=== PATIENT | female | born 1995 | race African-American/Black ===

== ENCOUNTER 2016-06-11 16:10 | Inpatient (IN) ==
[2016-06-11] MEDS ORDERED: ONDANSETRON 4 MG/2 ML VIAL IV STA (16:39)
[2016-06-11] MEDS ORDERED: METOCLOPRAMIDE 10 MG/2 ML VIAL IV STA (16:39)
[2016-06-11] MEDS ORDERED: LEVOFLOXACIN INJ 750 MG in PREMIX 1 EACH IV STA (16:39)
[2016-06-11] MEDS ORDERED: SODIUM CHLORIDE 0.9% 2,000 ML IV STA (16:39)
[2016-06-11] MEDS ORDERED: PANTOPRAZOLE 40 MG VIAL IV STA (16:39)
--- NOTE | 2016-06-11 16:45 | Emergency Department Note ---
Arrival - Arrival Chief Complaint: Abdominal / Flank Pain Stated Complaint: POSSIBLY IN DKA ED Nursing Triage Note: lower abdomen pain since last . has not been able to eat or drink without vomiting. reports thinks she is in diabetic ketoacidosis. reports sweet tast in her mouth and sob. last sugar she checked at [facility] was over 450. glucose in triage is over 454 Mode of Arrival: Ambulatory Limitations: No Limitations Source: Patient Time Seen by Provider: 06/11/16 16:39 - History of Present Illness HPI Narrative: This 20-year-old black female presents with a five-day history of progressive abdominal pain, nausea, dry heaves, and ever increasing blood sugar. The patient has long-standing type 1 diabetes and is frequently hospitalized for her sugars going out of control, and in fact 3 times in the last 18 months. In addition she has had some complaints of loose stools as well as being very thirsty. Currently she appears in no acute distress. Onset (ago): day(s) (patient presents 5 days post-onset of symptoms) Consistency: constant Severity: moderate Date of Last Menstrual Period: depo Allergies/Adverse Reactions: Allergies Allergy/AdvReac Type Severity Reaction Status Date / Time No Known Allergies Allergy Unverified 06/11/16 16:26 Home Medications: Home Medications Medication Instructions Recorded Confirmed Type Insulin Glargine [Lantus] 42 unit SUBCUT QAM 06/11/16 06/11/16 History Insulin Lispro [HumaLOG] See Protocol SUBCUT DAILY 06/11/16 06/11/16 History Review of System - Review of System 12 point system: reviewed and no additional remarkable complaints except as stated - Review of System Constitutional: Present: as per HPI Gastrointestinal: Present: as per HPI Endocrine: Present: as per HPI Medical,Surgical,& Family Hx - Medical History Endocrine: History of: Diabetes Mellitus (IDDM) Respiratory: History of: Asthma - Social History Smoking Status: Unknown if ever smoked Exam Physical Examination: GENERAL: Well developed, well nourished black female who is in no acute distress. HEENT: Normocephalic. No trauma. Moist mucous membranes. EOMI. PERRLA. NECK: Supple. No adenopathy. CARDIAC: Regular. No murmurs. CHEST: Clear to auscultation. No respiratory distress. ABDOMEN: Soft. Diffusely tender, hyperactive bowel sounds. EXTREMITIES: No trauma. Normal ROM. No pedal edema. SKIN: No diaphoresis. No rash. NEURO: Alert. Oriented 3. Motor, sensory, vibratory intact. No focal deficits. Vital Signs: Vital Signs Temperature 98.1 F 06/11/16 16:20 Pulse Rate 131 H 06/11/16 16:20 Respiratory Rate 28 H 06/11/16 16:20 Blood Pressure 168/102 06/11/16 16:20 O2 Sat by Pulse Oximetry 98 06/11/16 16:20 Course - Reevaluation(s) Reevaluation #1: Bodies patient that she would need further hydration and require hospitalization. - Consultations Consultation #1: Discussed with the hospitalist service who will admit for further evaluation and treatment. Results - Labs CBC & BMP: 06/11/16 16:42 06/11/16 16:42 Labs: I have reviewed the laboratory noted the elevated white blood cell count, borderline acidotic pH, and elevated blood sugar. Disposition Clinical Impression: diabetic ketoacidosis Case discussed with: patient, patient's family Disposition: Still a Patient Condition: Stable Time of Disposition: 19:11
[2016-06-11] MEDS ORDERED: INSULIN REGULAR 100 UNIT/ML SUBCUT STA (16:47)
[2016-06-11] MEDS ORDERED: INSULIN REGULAR 100 UNIT/ML IV STA (16:47)
[2016-06-11] MEDS ORDERED: LEVOFLOXACIN INJ 150 ML IV ONE (17:08)
[2016-06-11] MEDS ORDERED: METOCLOPRAMIDE 10 MG/2 ML VIAL ONE (17:09)
[2016-06-11] MEDS ORDERED: PANTOPRAZOLE 40 MG VIAL IV ONE (17:09)
[2016-06-11] MEDS ORDERED: ONDANSETRON 4 MG/2 ML VIAL ONE (17:09)
[2016-06-11] MEDS ORDERED: INSULIN REGULAR 100 UNIT/ML ONE (17:11)
[2016-06-11 17:45] LABS: Basophils # 0.1 10*3/uL (0.0-0.2); Basophils % 0.5 % (0.0-0.8); Eosinophils % 0.1 % (0.00-10.9); Hematocrit 36.7 VOL% (35.7-47.0); Hemoglobin 11.5 GM/DL (12.0-16.0); Immature Granulocytes % 0.8 %; Immature Granulocytes Absolute 0.11 #; Lymphocytes # 1.7 10*3/uL (1.4-4.0); Lymphocytes % 12.3 % (21.3-54.2); Mean Corpuscular HGB Conc 31.3 GM/DL (32-36); Mean Corpuscular Hemoglobin 26 PG (27-34); Mean Corpuscular Volume 83.4 FL (87-102); Mean Platelet Volume 10.3 FL (9.6-12.0); Monocytes % 7.2 % (1.7-12.7); Neutrophils # 11.2 10*3/uL (1.4-7.4); Neutrophils % 79.1 % (38.7-73.9); Platelet Count 393 T/CUMM (130-400); Red Cell Distribution Width 15.8 % (9.3-17.3); White Blood Count 14.1 T/CUMM (4-12)
[2016-06-11 18:03] LABS: Albumin 2.3 G/DL (3.4-5.0); Bilirubin,Total 0.4 MG/DL (0.2-1.0); Calcium 9.5 MG/DL (8.5-10.1); Osmolality,Calculated 278.8 MOS/KG (273-304); Potassium 3.5 MMOL/L (3.5-5.1); Total Protein 8.4 G/DL (6.4-8.3)
[2016-06-11 18:07] LABS: Apearance,Urine CLEAR (Clear); Bilirubin,Urine Negative (Negative); Blood, Urine Small mg/dL (Negative); Glucose,Urine (UA) >=500 mg/dL (Negative); Ketones,Urine 80 mg/dL (Negative); Mucus,Urine Occasional /LPF (Occasional); Nitrite,Urine Negative (Negative); Protein,Urine Negative; RBC,Urine 1 /HPF (0-4); Squamous Epithelial Cell,Urine Occasional /HPF (0-10); Urine Color Straw (Yellow); Urine Specific Gravity 1.003 (1.001-1.035); Urine Urobilinogen < 2.0 EU/DL (0.2-1.0); WBC,Urine 4 /HPF (0-6)
[2016-06-11 18:18] LABS: Lactic Acid 1.6 MMOL/L (0.4-2.0)
[2016-06-11 18:19] LABS: Allen Test Positive; Pt O2 Delivery Device Room Air
[2016-06-11 18:20] LABS: ABG Base Excess -14.4 MMOL/L (-2.5-2.5); ABG HCO3 9.2 MMOL/L (20-26); ABG Oxygen Saturation 98.2 % (95-100); ABG PH 7.334 (7.35-7.45); ABG PO2 122.1 MM HG (80-95); ABG TCO2 9.8 MMOL/L (23-27)
[2016-06-11 18:21] LABS: ABG PCO2 17.7 MM HG (35-48)
--- NOTE | 2016-06-11 19:19 | Hospitalist History & Physical ---
Assessment and Plan - Time spent with patient Time spent with patient: Greater than 30 minutes (1) DKA (diabetic ketoacidoses) Status: Acute Assessment and plan: Patient be admitted, hydrated, placed on Accu-Cheks with sliding scale insulin with close observation and adjustment of fluids based on electrolytes and renal status. She has been cultured and received intravenous Levaquin while in the emergency room, however I see no focus of infection at this time pending her chest x-ray. We'll await her studies prior to continuation of IV antibiotic therapy as her leukocytosis may be secondary to Demargination as well. We'll continue to treat her symptomatically with intravenous anti-emetics. Current Visit: Yes Qualifiers: Diabetes mellitus type: type 1 History of Present Illness Chief complaint: nausea, high blood sugar History of present illness: Ms. Owen is a 20 year old female who states over the past 5 days she has had severe nausea with decreasing oral intake and practically no vomiting. She states that she has not had a bowel movement since last Friday. She denies any fever, chills, medical noncompliance, skin rash, sore throat, upper respiratory tract symptoms. She has had some lower abdominal discomfort and has had a mild cough which is been nonproductive did well. She denies any dysuria, hematuria, melena, hematochezia, hematemesis. She states she has been checking her blood sugars the past few days and they've been running in the 400 range. [facility] for further evaluation and care. Her primary care physician resides in [facility]. She attends school at the [employer] [facility] [employer] [facility] [place], [place]. Home Medications Medication Instructions Recorded Confirmed Type Insulin Glargine [Lantus] 42 unit SUBCUT QAM 06/11/16 06/11/16 History Insulin Lispro [HumaLOG] See Protocol SUBCUT DAILY 06/11/16 06/11/16 History Allergies Allergy/AdvReac Type Severity Reaction Status Date / Time No Known Allergies Allergy Unverified 06/11/16 16:26 Medical,Surgical,& Family Hx - Medical History Endocrine: History of: Diabetes Mellitus (IDDM) Respiratory: History of: Asthma - Surgical History Surgical History: noncontributory - Family History Family History: Reports;: Family Diabetes, Family Hypertension - Social History Smoking Status: Never smoker Frequency of Alcohol Use: None Type of Drug Use: None Marital Status: Single Functional capacity: independent ambulation 12 point system: reviewed and no additional remarkable complaints except as stated Exam - Constitutional Vitals: Period Temp Pulse Resp BP Sys/Herron Pulse Ox Last 24 Hr 98.1 F 120-131 25-28 122-168/83-102 96-98 General appearance: no acute distress - Head Head exam: Present: normocephalic, atraumatic - Eye Eye exam: Present: EOMI. Absent: scleral icterus Pupils: Present: CHERRIE - ENT ENT exam: Present: normal external ear exam, normal oropharynx - Neck Neck exam: Absent: lymphadenopathy, meningismus, tenderness, thyromegaly - Respiratory Respiratory exam: Present: clear to auscultation bilaterally. Absent: accessory muscle use, decreased breath sounds, rales, rhonchi, wheezes - Cardiovascular Cardiovascular exam: Present: regular rate and rhythm, tachycardia. Absent: gallop, JVD, rubs, systolic murmur - GI/Abdominal GI/Abdominal exam: Present: normal bowel sounds, soft. Absent: ascites, mass, organomegaly, tenderness, rebound - Extremities Exam Extremities exam: Present: normal capillary refill. Absent: calf tenderness, edema - Back Exam Back exam: Present: normal inspection. Absent: CVA tenderness (L), CVA tenderness (R) - Neurological Exam Neurological exam: Present: alert, oriented X3, CN II-XII intact. Absent: motor sensory deficit - Psychiatric Psychiatric exam: Present: normal affect, normal mood. Absent: agitated, anxious - Skin Skin exam: Present: dry. Absent: warm, erythema, petechiae, rash Results - Labs CBC & BMP: 06/12/16 05:02 06/12/16 05:02 Lab Results: I have reviewed the past 24 hour labs Quality Measures - VTE Deep Vein Thrombosis/Pulmonary Embolism Present on Admission: No
[2016-06-11] MEDS ORDERED: ONDANSETRON 4 MG/2 ML VIAL IV PRN (20:49)
[2016-06-11] MEDS ORDERED: GLUCAGON 1 MG VIAL IM PRN (20:49)
[2016-06-11] MEDS ORDERED: DEXTROSE 50% 25 GM/50 ML VIAL IV PRN (20:49)
[2016-06-11] MEDS ORDERED: ACETAMINOPHEN 325 MG TABLET PO PRN (20:49)
[2016-06-11] MEDS ORDERED: SODIUM CHLORIDE 0.9% 2,000 ML IV SCH (21:00)
[2016-06-11 21:15] LABS: Calcium 8.3 MG/DL (8.5-10.1); Osmolality,Calculated 284.6 MOS/KG (273-304); Potassium 3.5 MMOL/L (3.5-5.1)
--- NOTE | 2016-06-11 21:26 | XRay Report ---
XR chest 1V portable Indication: Cough. Chest one view: Scoliosis thoracic spine is present. The heart size and mediastinal contour are normal. The lungs and pleural spaces are clear. Bones are unremarkable. Impression: Negative chest. PROCEDURE INTERPRETED AT [facility] DEPARTMENT OF RADIOLOGY Final Report Signed by: Avi Varma M.D.
[2016-06-11] MEDS: MORPHINE 2 MG/1 ML SYRINGE IV PRN (21:47)
[2016-06-11] MEDS: ENOXAPARIN 40 MG/0.4 ML SYRINGE SUBCUT SCH (22:23)
[2016-06-11] MEDS: SODIUM CHLORIDE 0.9% 2,000 ML IV SCH (22:32)
[2016-06-12] MEDS: INSULIN REGULAR 100 UNIT/ML SUBCUT SCH ×3 (01:21→13:13)
[2016-06-12] MEDS: SODIUM CHLOR 0.9% KCL 40 MEQ 40 MEQ/1,000 ML BAG IV SCH (01:30)
[2016-06-12] MEDS: MORPHINE 2 MG/1 ML SYRINGE IV PRN ×2 (05:29→21:54)
[2016-06-12 06:06] LABS: Basophils % 0.3 % (0.0-0.8); Eosinophils # 0.1 10*3/uL (0.0-0.87); Eosinophils % 0.7 % (0.00-10.9); Hematocrit 33.3 VOL% (35.7-47.0); Hemoglobin 10.5 GM/DL (12.0-16.0); Immature Granulocytes % 0.5 %; Immature Granulocytes Absolute 0.06 #; Lymphocytes # 1.9 10*3/uL (1.4-4.0); Lymphocytes % 16.4 % (21.3-54.2); Mean Corpuscular HGB Conc 31.5 GM/DL (32-36); Mean Corpuscular Hemoglobin 26 PG (27-34); Mean Corpuscular Volume 83.5 FL (87-102); Mean Platelet Volume 10.9 FL (9.6-12.0); Monocytes # 1.1 10*3/uL (0.11-0.8); Monocytes % 9.9 % (1.7-12.7); Neutrophils # 8.2 10*3/uL (1.4-7.4); Neutrophils % 72.2 % (38.7-73.9); Platelet Count 343 T/CUMM (130-400); Red Blood Count 3.99 MC/CUMM (3.8-5.5); Red Cell Distribution Width 15.8 % (9.3-17.3); White Blood Count 11.4 T/CUMM (4-12)
[2016-06-12 06:30] LABS: Hypochromasia Slight; Platelet Estimate Adequate
[2016-06-12 06:36] LABS: Calcium 8.4 MG/DL (8.5-10.1); Osmolality,Calculated 286.7 MOS/KG (273-304); Potassium 3.6 MMOL/L (3.5-5.1)
[2016-06-12] MEDS: SODIUM CHLORIDE 0.9% 2,000 ML IV SCH (07:12)
[2016-06-12] MEDS ORDERED: INSULIN GLARGINE 100 UNIT/ML SUBCUT SCH (09:00)
[2016-06-12] MEDS: PANTOPRAZOLE 40 MG TABLET PO SCH (09:16)
--- NOTE | 2016-06-12 13:47 | Hospitalist Progress Note ---
Assessment and Plan (1) DKA (diabetic ketoacidoses) Status: Acute Assessment and plan: The second metabolic acidosis on admission with anion gap 25 Initiate DKA protocol and transfer to ICU Blood sugar still high in 334 and complains of abdominal pain Start n.p.o. until her blood sugar below 250 and she is off of insulin drip BMP every 4 hours No obvious source of infection, chest x-ray is clear urinalysis is normal Current Visit: Yes Qualifiers: Diabetes mellitus type: type 1 (2) Metabolic acidosis Status: Acute Assessment and plan: Due to poorly controlled insulin dependent diabetes Initiate DKA protocol Current Visit: Yes (3) Diabetes type 1, uncontrolled Status: Chronic Assessment and plan: Patient at home on Lantus 42 units at bedtime and lispro insulin ACHS Will initiate DKA protocol Check A1c in am Current Visit: Yes Hospitalist: Subjective Interval history: Ms. Owen is a 20 year old female who states over the past 5 days she has had severe nausea with decreasing oral intake and practically no vomiting. She states that she has not had a bowel movement since last Friday. She denies any fever, chills, medical noncompliance, skin rash, sore throat, upper respiratory tract symptoms. She has had some lower abdominal discomfort and has had a mild cough which is been nonproductive did well. She denies any dysuria, hematuria, melena, hematochezia, hematemesis. She states she has been checking her blood sugars the past few days and they've been running in the 400 range. She was seen in an outlying hospital and transferred to [facility] for further evaluation and care. Her primary care physician resides in [facility]. She attends school at the [employer] in [place], [place]. patient was admitted for observation and started on IV fluids. On admission her bicarb on ABG was 17. She has significant metabolic acidosis with anion gap. Chest x-ray was clear, urinalysis are normal This morning she still have elevated gap. Bicarb 17, blood sugar was 333. Patient never was placed on DKA protocol. The febrile, still complains of right upper and lower quadrant abdominal pain. Exam - Constitutional Vitals: Period Temp Pulse Resp BP Sys/Herron Pulse Ox Last 24 Hr 97.4 F-99.7 F 108-119 18-24 111-134/63-91 99-100 General appearance: normal weight, no acute distress - Head Head exam: Present: normal inspection - Eye Eye exam: Present: EOMI Pupils: Present: CHERRIE - ENT ENT exam: Present: normal exam - Neck Neck exam: Present: normal inspection - Respiratory Respiratory exam: Present: clear to auscultation bilaterally - Cardiovascular Cardiovascular exam: Present: regular rate and rhythm - GI/Abdominal GI/Abdominal exam: Present: normal bowel sounds (Mild tenderness on palpation), other - Extremities Exam Extremities exam: Present: normal inspection, normal capillary refill - Neurological Exam Neurological exam: Present: alert, oriented X3, normal gait - Psychiatric Psychiatric exam: Present: depressed - Skin Skin exam: Present: normal color, warm Results - Labs CBC & BMP: 06/12/16 05:02 06/12/16 05:02 Quality Measures - VTE Deep Vein Thrombosis/Pulmonary Embolism Present on Admission: No
[2016-06-12] MEDS: SODIUM CHLORIDE 0.9% 1,000 ML IV SCH ×2 (14:15→16:16)
[2016-06-12] MEDS ORDERED: INSULIN REGULAR DRIP 100 ML IV SCH (14:30)
[2016-06-12] MEDS ORDERED: INSULIN REGULAR DRIP 100 ML IV ONE (14:36)
[2016-06-12 14:55] LABS: Calcium 8.2 MG/DL (8.5-10.1); Osmolality,Calculated 297.7 MOS/KG (273-304); Potassium 3.6 MMOL/L (3.5-5.1)
[2016-06-12] MEDS ORDERED: DEXTROSE 5% NACL 0.9% 1,000 ML IV SCH ×3 (18:00→19:30)
[2016-06-12] MEDS ORDERED: SODIUM CHLORIDE 0.9% 1,000 ML IV SCH (18:15)
[2016-06-12] MEDS: DEXT 5% NACL 0.45% KCL 20 MEQ 20 MEQ/1,000 ML BAG IV SCH (21:10)
[2016-06-12] MEDS: ENOXAPARIN 40 MG/0.4 ML SYRINGE SUBCUT SCH (21:10)
[2016-06-12 21:51] LABS: Calcium 8.1 MG/DL (8.5-10.1); Magnesium 1.8 MG/DL (1.8-2.4); Osmolality,Calculated 299.6 MOS/KG (273-304); Potassium 3.2 MMOL/L (3.5-5.1)
[2016-06-13] MEDS: DEXT 5% NACL 0.45% KCL 20 MEQ 20 MEQ/1,000 ML BAG IV SCH (01:02)
[2016-06-13] MEDS: DEXT 5% NACL 0.45% KCL 40 MEQ 40 MEQ/1,000 ML BAG IV SCH ×2 (01:35→19:11)
[2016-06-13 06:24] LABS: Magnesium 1.7 MG/DL (1.8-2.4); Osmolality,Calculated 304.2 MOS/KG (273-304); Potassium 3.8 MMOL/L (3.5-5.1)
[2016-06-13] MEDS ORDERED: DEXT 5% NACL 0.45% KCL 20 MEQ 20 MEQ/1,000 ML BAG IV SCH (07:00)
[2016-06-13] MEDS ORDERED: DEXTROSE 50% 25 GM/50 ML VIAL IV PRN (07:51)
[2016-06-13] MEDS ORDERED: GLUCAGON 1 MG VIAL IM PRN (07:51)
--- NOTE | 2016-06-13 08:00 | Hospitalist Progress Note ---
Assessment and Plan (1) DKA (diabetic ketoacidoses) Status: Acute Assessment and plan: Anion gap is closed. Start on ADA diet Start on subcutaneous insulin per sliding scale and Lantus 42 units We will transfer to medical floor She is a little bit alkalotic, will start on half normal saline at 125 cc per Current Visit: Yes Qualifiers: Diabetes mellitus type: type 1 (2) Metabolic acidosis Status: Acute Assessment and plan: resolved Current Visit: Yes (3) Diabetes type 1, uncontrolled Status: Chronic Assessment and plan: restart lantus 42 units and insulin ACHS ADA diet Current Visit: Yes Hospitalist: Subjective Interval history: Ms. Owen is a 20 year old female who states over the past 5 days she has had severe nausea with decreasing oral intake and practically no vomiting. She states that she has not had a bowel movement since last Friday. She denies any fever, chills, medical noncompliance, skin rash, sore throat, upper respiratory tract symptoms. She has had some lower abdominal discomfort and has had a mild cough which is been nonproductive did well. She denies any dysuria, hematuria, melena, hematochezia, hematemesis. She states she has been checking her blood sugars the past few days and they've been running in the 400 range. She was seen in an outlying hospital and transferred to [facility] for further evaluation and care. Her primary care physician resides in [facility]. She attends school at the [employer] [facility] [employer] in [place], [place]. patient was admitted for observation and started on IV fluids. On admission her bicarb on ABG was 17. She has significant metabolic acidosis with anion gap. Chest x-ray was clear, urinalysis are normal This morning -patient is normal acidosis, anion gap is closed. DKA protocol completed. We will start her on ADA diet and subcutaneous insulin. We will restart her home dose of Lantus 42 units. Initiate insulin sliding scale ACHS. Will transfer to the medical floor. Patient is alert, oriented. She denies any complaints. Her abdominal pain is gone. She is afebrile. Exam - Constitutional Vitals: Period Temp Pulse Resp BP Sys/Herron Pulse Ox Last 24 Hr 97.4 F-98.7 F 98-120 19-25 115-163/74-98 98-100 General appearance: normal weight, no acute distress - Head Head exam: Present: normal inspection, normocephalic, atraumatic - Eye Eye exam: Present: EOMI Pupils: Present: CHERRIE - ENT ENT exam: Present: normal exam - Neck Neck exam: Present: normal inspection - Respiratory Respiratory exam: Present: clear to auscultation bilaterally - Cardiovascular Cardiovascular exam: Present: regular rate and rhythm - GI/Abdominal GI/Abdominal exam: Present: normal bowel sounds, soft - Extremities Exam Extremities exam: Present: normal inspection, normal capillary refill - Neurological Exam Neurological exam: Present: alert, oriented X3 - Psychiatric Psychiatric exam: Present: normal affect, normal mood - Skin Skin exam: Present: normal color, warm Results - Labs CBC & BMP: 06/12/16 05:02 06/13/16 05:34 Quality Measures - VTE Deep Vein Thrombosis/Pulmonary Embolism Present on Admission: No
[2016-06-13] MEDS: SODIUM CHLORIDE 0.45% 1,000 ML IV SCH ×2 (08:03→16:31)
[2016-06-13] MEDS: PANTOPRAZOLE 40 MG TABLET PO SCH (08:32)
[2016-06-13] MEDS: INSULIN GLARGINE 100 UNIT/ML SUBCUT SCH (08:32)
[2016-06-13 09:45] LABS: Blood Urea Nitrogen < 1 MG/DL (7-18); Calcium 8.3 MG/DL (8.5-10.1); Glucose 176 MG/DL (74-106); Magnesium 1.7 MG/DL (1.8-2.4); Osmolality,Calculated 295.5 MOS/KG (273-304); Potassium 3.9 MMOL/L (3.5-5.1); Sodium 149 MMOL/L (136-145)
[2016-06-13] MEDS ORDERED: INSULIN LISPRO 100 UNIT/ML SUBCUT SCH (11:48)
[2016-06-13] MEDS: INSULIN LISPRO 100 UNIT/ML SUBCUT SCH ×3 (12:14→21:18)
[2016-06-13 21:03] LABS: Magnesium 1.7 MG/DL (1.8-2.4)
[2016-06-13] MEDS: ENOXAPARIN 40 MG/0.4 ML SYRINGE SUBCUT SCH (21:17)
[2016-06-14] MEDS: SODIUM CHLORIDE 0.45% 1,000 ML IV SCH ×2 (04:32→09:26)
[2016-06-14] MEDS: SODIUM CHLOR 0.9% KCL 40 MEQ 40 MEQ/1,000 ML BAG IV SCH (04:37)
[2016-06-14 05:19] LABS: Calcium 8.1 MG/DL (8.5-10.1); Magnesium 1.6 MG/DL (1.8-2.4); Osmolality,Calculated 284.7 MOS/KG (273-304); Potassium 3.3 MMOL/L (3.5-5.1)
--- NOTE | 2016-06-14 09:10 | Discharge Summary ---
<AnnaMayelin N - Last Filed: 06/14/16 08:59> Hospital Course - Hospital Course Hospital Course: Ms. Owen is a 20 year old female who was admitted on 06/11 for DKA. She presented with decreased oral intake, metabolic acidosis and increased anion gap. She was admitted to ICU, started on DKA protocol, IV insulin and IV hydration. She improved after two days, was transferred to the regular med floor. As of yesterday, her gap had closed and she was tolerating a regular diet well. She was restarted on her home insulin and medication doses and is maintaining normal glucose levels. She is awake and alert. She can be discharged to home today with resuming her normal home medications. Please see discharge medication reconciliation for accurate list. Discharge Plan - Discharge Data Disposition: Disch To Home/Self Care - Discharge Medications Continue Insulin Lispro [HumaLOG] See Protocol SUBCUT DAILY Insulin Glargine [Lantus] 42 unit SUBCUT QAM - Follow Up or Referral - Forms/Instructions Exam - Constitutional Vitals: Period Temp Pulse Resp BP Sys/Herron Pulse Ox Last 24 Hr 97.0 F-97.7 F 80-99 17-20 121-133/75-98 98-100 Discharge Results Labs on day of discharge: Labs from last 24 hours 06/14/16 06/14/16 06/14/16 09:07 08:05 06:36 Sodium 145 Potassium 3.7 Chloride 110 H Carbon Dioxide 22 Anion Gap 16.7 H BUN 2 L Creatinine 0.60 GFR Calculation 141 BUN/Creatinine Ratio 3.00 L Glucose 275 H POC Glucose 198 H 95 Calculated Osmolality 293.7 Calcium 8.0 L Magnesium 1.7 L 06/14/16 06/13/16 06/13/16 03:37 20:08 18:42 Sodium 145 143 Potassium 3.3 L 4.0 Chloride 112 H 111 H Carbon Dioxide 22 19 L Anion Gap 14.3 17.0 H BUN 3 L 2 L Creatinine 0.40 L 0.70 GFR Calculation 160 133 BUN/Creatinine Ratio 7.00 2.00 L Glucose 101 349 H POC Glucose 311 H Calculated Osmolality 284.7 294.0 Calcium 8.1 L 8.0 L Magnesium 1.6 L 1.7 L 06/13/16 06/13/16 06/13/16 16:26 11:16 07:58 Sodium Potassium Chloride Carbon Dioxide Anion Gap BUN Creatinine GFR Calculation BUN/Creatinine Ratio Glucose POC Glucose 230 H 223 H 101 Calculated Osmolality Calcium Magnesium 06/13/16 06/13/16 06/13/16 06:50 06:23 05:31 Sodium Potassium Chloride Carbon Dioxide Anion Gap BUN Creatinine GFR Calculation BUN/Creatinine Ratio Glucose POC Glucose 143 H 75 111 H Calculated Osmolality Calcium Magnesium 06/13/16 06/13/16 06/13/16 04:33 03:27 02:16 Sodium Potassium Chloride Carbon Dioxide Anion Gap BUN Creatinine GFR Calculation BUN/Creatinine Ratio Glucose POC Glucose 159 H 123 H 131 H Calculated Osmolality Calcium Magnesium 06/13/16 06/13/16 06/12/16 01:05 00:18 23:12 Sodium Potassium Chloride Carbon Dioxide Anion Gap BUN Creatinine GFR Calculation BUN/Creatinine Ratio Glucose POC Glucose 106 113 H 116 H Calculated Osmolality Calcium Magnesium 06/12/16 06/12/16 06/12/16 22:01 21:07 20:03 Sodium Potassium Chloride Carbon Dioxide Anion Gap BUN Creatinine GFR Calculation BUN/Creatinine Ratio Glucose POC Glucose 120 H 161 H 185 H Calculated Osmolality Calcium Magnesium 06/12/16 06/12/16 06/12/16 19:10 18:24 17:24 Sodium Potassium Chloride Carbon Dioxide Anion Gap BUN Creatinine GFR Calculation BUN/Creatinine Ratio Glucose POC Glucose 178 H 138 H 177 H Calculated Osmolality Calcium Magnesium 06/12/16 06/12/16 06/12/16 16:23 15:20 14:20 Sodium Potassium Chloride Carbon Dioxide Anion Gap BUN Creatinine GFR Calculation BUN/Creatinine Ratio Glucose POC Glucose 254 H 288 H 344 H Calculated Osmolality Calcium Magnesium Preliminary micro results at discharge 06/11/16 20:49 Blood Culture - Preliminary Blood No growth at 1 day DS: Provider Date of admission: 06/11/16 19:29 Primary care physician: . No PCP Attending physician on admission: Nay Hoover MD Consults: 06/11/16 21:02 Consult to Pharmacy [CONS] Routine Reason for Pharmacy Consult: Adjust Meds Renal Funct 06/11/16 21:21 Consult to [facility], Educator [CONS] Routine Reason for Salesforce Consultant: Evaluate and Recommend Discharging clinician: OLIVIER Strickland <Nay Hoover - Last Filed: 06/14/16 11:33> Hospital Course - Hospital Course Hospital Course: This is ad addendum to DC summary of [facility] [employer]. I personally interviewed and examined pt. Agree with DC summary. 20 yo AAF admitted with metabolic acidosis due to DKA. She is on lasntus 42 units HS and lispro per SC at home. Pt was admitted to ICU on DKA protocol. Her gap was closed and she was downgraded to the floor yesterday. Now she is on home insulin regimen. She denies any complains this am except UE swelling. Afebrile. Denies N, V, abd pain. She ate her breakfast, tolerated well. A1c- 13.4 I was questioning her complaince with insulin at home due to elevated a1c. She told me that she is complaint. She will be dc today. No prescription needed. Will f/u with her PCP as oupt Diagnosis - Discharge Diagnosis (1) DKA (diabetic ketoacidoses) Status: Acute (2) Metabolic acidosis Status: Acute (3) Diabetes type 1, uncontrolled Status: Chronic Discharge Plan - Discharge Data Condition at Discharge: Stable Discharge Diet: advance to your usual diet Activity: resume usual activities as tolerated Hygiene: no restrictions Driving: no restrictions Contact your physician if you experience:: fever over 101, Redness or swelling, Nausea/Vomiting, Shortness of breath DS: Provider Expected date of discharge: 06/14/16
[2016-06-14] MEDS: INSULIN LISPRO 100 UNIT/ML SUBCUT SCH ×2 (09:21→13:16)
[2016-06-14] MEDS: INSULIN GLARGINE 100 UNIT/ML SUBCUT SCH (09:22)
[2016-06-14] MEDS: PANTOPRAZOLE 40 MG TABLET PO SCH (09:22)
[2016-06-14 10:29] LABS: Magnesium 1.7 MG/DL (1.8-2.4); Osmolality,Calculated 293.7 MOS/KG (273-304); Potassium 3.7 MMOL/L (3.5-5.1)
[2016-06-14 14:07] VITALS: BP 118/56
== END 2016-06-14 13:20 | disposition home or self-care (01) | DRG 638 ==
LOC: N.ED 16:10 → N.EDINP 16:10 → OBSVTOIN 19:29 → N.2E 20:04 → N.CC 06-12 14:07 → N.4E 06-13 12:36
PROVIDERS: ADMIT Internal Medicine; ATTEND Internal Medicine

== ENCOUNTER 2016-08-05 15:35 | Inpatient (IN) ==
[2016-08-05] MEDS ORDERED: SODIUM CHLORIDE 0.9% 1,000 ML IV STA (16:11)
[2016-08-05 17:52] LABS: Alanine Aminotransferase 20 U/L (13-56); Albumin 3.3 G/DL (3.4-5.0); Alkaline Phosphatase 168 U/L (45-117); Aspartate Amino Transferase 24 U/L (0-37); Bilirubin,Total < 0.39 MG/DL (0.2-1.0); Blood Urea Nitrogen 14 MG/DL (7-18); Calcium 9.5 MG/DL (8.5-10.1); Glucose 233 MG/DL (74-106); Osmolality,Calculated 284.5 MOS/KG (273-304); Potassium 5.1 MMOL/L (3.5-5.1); Sodium 139 MMOL/L (136-145); Total Protein 8.4 G/DL (6.4-8.3)
[2016-08-05] MEDS ORDERED: INSULIN REGULAR 100 UNIT/ML SUBCUT STA (18:01)
--- NOTE | 2016-08-05 18:02 | Emergency Department Note ---
Shelley Walls Gwan, am scribing for, and in the presence of, Edward Martinez MD 16:21. Juan Walls Phillip K, MD, personally performed the services described in this documentation, ascribed by Milana Rosa in my presence, and it is both accurate and complete [id number] . Arrival - Arrival Chief Complaint: Non-Specific Stated Complaint: hyperglycemia ED Nursing Triage Note: Patient arrived via ems with complaint of elevated blood sugar. Patient reports bs was 400 on yesterday. Reports bs was 388 today. Patient with pmh of IDDM, asthma. Patient was in dorm at [facility] when all occurred. EMS reports giving 500cc NS and rechecking blood sugar. BS upon recheck was 247. Mode of Arrival: Stretcher Limitations: No Limitations Source: Patient, Old Records Reviewed, RN Notes Reviewed Time Seen by Provider: 08/05/16 16:04 - History of Present Illness HPI Narrative: Pt is a 20 y/o female, with a hx of IDDM, who presents to the ED for further evaluation of elevated BS. Patient noted that pt's BS yesterday was 400. Patient confirmed that she was in dorm at [facility] when she began to notice her BS changes, that she has a hx of ketoacidosis and abd pain. EMS gave pt 500cc en route. 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 During exam, pt's BS was 266. She denies having any fever. No other problems/complaints reported in ED. Onset (ago): day(s) Consistency: constant Severity: moderate Allergies/Adverse Reactions: Allergies Allergy/AdvReac Type Severity Reaction Status Date / Time No Known Allergies Allergy Unverified 06/11/16 16:26 Home Medications: Home Medications Medication Instructions Recorded Confirmed Type Insulin Glargine [Lantus] 42 unit SUBCUT QAM 06/11/16 06/11/16 History Insulin Lispro [HumaLOG] See Protocol SUBCUT DAILY 06/11/16 06/11/16 History Review of System - Review of System 12 point system: reviewed and no additional remarkable complaints except as stated - Review of System Constitutional: Present: as per HPI, other (elevated blood sugar) Gastrointestinal: Present: as per HPI, abdominal pain Medical,Surgical,& Family Hx - Medical History Endocrine: History of: Diabetes Mellitus (IDDM) Respiratory: History of: Asthma - Family History Family History: Reports;: Family Diabetes, Family Hypertension - Social History Smoking Status: Never smoker Frequency of Alcohol Use: None Type of Drug Use: None Exam Vital Signs: Vital Signs Temperature 98.0 F 08/05/16 15:35 Pulse Rate 112 H 08/05/16 17:00 Respiratory Rate 20 08/05/16 17:00 Blood Pressure 122/90 08/05/16 17:00 O2 Sat by Pulse Oximetry 100 08/05/16 17:00 - General General appearance: alert, in no apparent distress - Head Head exam: Present: atraumatic, normocephalic - Eye Eye exam: Present: normal appearance, PERRL, EOMI - ENT ENT exam: Present: normal oropharynx, mucous membranes moist, TM's normal bilaterally, normal external ear exam - Neck Neck exam: Present: full ROM, trachea midline. Absent: tenderness - Chest Chest inspection: Present: symmetric chest wall rise. Absent: tenderness - Respiratory Respiratory exam: Present: normal lung sounds bilaterally. Absent: respiratory distress - Cardiovascular Cardiovascular exam: Present: regular rate, normal rhythm, normal heart sounds. Absent: murmur, rubs - Abdominal Exam Abdominal exam: Present: tenderness (LUQ tenderness to palpation) - Extremities Exam Extremities exam: Present: full ROM. Absent: tenderness - Back Exam Back exam: Present: full ROM. Absent: tenderness - Neurological Exam Neurological exam: Present: alert, oriented X3, CN II-XII intact. Absent: motor sensory deficit - Psychiatric Psychiatric exam: Present: normal affect, normal mood - Skin Skin exam: Present: warm, dry, intact, normal color Course Course Narrative: Patient saw her second liter of IV fluids in the ED. We'll give her 15 units of insulin subcutaneous. Results - Labs CBC & BMP: 08/05/16 16:03 Lab Results: I have reviewed the patients labs Labs: Laboratory Tests 08/05/16 16:10 POC Glucose 266 H Disposition Clinical Impression: early diabetic ketoacidosis Case discussed with: patient Disposition: Still a Patient Condition: Guarded Additional Instructions: Admit to the hospitalist.
[2016-08-05] MEDS ORDERED: INSULIN REGULAR 100 UNIT/ML IV ONE (18:40)
[2016-08-05] MEDS ORDERED: DEXTROSE 50% 25 GM/50 ML VIAL IV PRN ×2 (18:40)
[2016-08-05] MEDS ORDERED: SODIUM BICARB INJ 100 MEQ in STERILE WATER INJ 400 ML IV PRN (18:40)
[2016-08-05] MEDS ORDERED: POTASSIUM CHLORIDE RIDER 10 MEQ in PREMIX 1 EACH IV PRN (18:40)
[2016-08-05] MEDS ORDERED: SODIUM CHLORIDE 0.9% 1,000 ML IV ONE (18:40)
[2016-08-05] MEDS ORDERED: SODIUM PHOSPHATE INJ 14.2 MMOL in SODIUM CHLORIDE 0.9% 250 ML IV PRN (18:40)
[2016-08-05] MEDS ORDERED: MAGNESIUM SULF RIDER 4 GM in PREMIX 1 EACH IV PRN (18:40)
--- NOTE | 2016-08-05 18:46 | Hospitalist History & Physical ---
Assessment and Plan (1) DKA (diabetic ketoacidoses) Status: Acute Assessment and plan: Pt will be admitted to the ICU for monitoring. IV fluids and insulin therapy initiated. Continue to monitor. Current Visit: No Qualifiers: Diabetes mellitus type: type 1 History of Present Illness History of present illness: Ms. Owen is a 20 year old black female that presented to the ED today with elevated blood sugars. Pt has a history of DM type 1 and ketoacidosis. Pt. stated that her blood sugars began to become elevated last night. She reported them being in the 400s. She also stated that she began to experience urinary frequency and excessive thirstiness. Pt. states that she is on 42 units of lantus daily (in am) and is on a Humalog SS for which she is compliant. Pt. complains of abdominal pain but denies nausea, vomiting and diarrhea. Pt also denies fever, chills, chest pain or difficulty breathing. This morning the patient stated she "got worse" and alerted her dorm mother. 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 On arrival to the ED, pt had a glucose of 388. The patient will be admitted to the hospitalist service and placed in ICU for monitoring and treatment. Home Medications Medication Instructions Recorded Confirmed Type Insulin Glargine [Lantus] 42 unit SUBCUT QAM 06/11/16 06/11/16 History Insulin Lispro [HumaLOG] See Protocol SUBCUT DAILY 06/11/16 06/11/16 History Allergies Allergy/AdvReac Type Severity Reaction Status Date / Time No Known Allergies Allergy Unverified 06/11/16 16:26 Medical,Surgical,& Family Hx - Medical History Endocrine: History of: Diabetes Mellitus (IDDM) Respiratory: History of: Asthma - Family History Family History: Reports;: Family Cancer (prostate and breast cancer), Family Diabetes, Family Hypertension, Family Stroke - Social History Smoking Status: Never smoker Frequency of Alcohol Use: None Type of Drug Use: None Lives With:: school dorm Functional capacity: independent ambulation - Constitutional Constitutional: Present: weakness. Absent: chills, fever(s) - EENT Eyes: Absent: blurry vision, loss of vision Ears: Absent: decreased hearing Nose, mouth and throat: Present: headache(s). Absent: dysphagia - Cardiovascular Cardiovascular: Absent: chest pain at rest, dyspnea - Respiratory Respiratory: Absent: cough, dyspnea - Gastrointestinal Gastrointestinal: Absent: nausea, vomiting - Genitourinary Genitourinary: Present: urinary frequency. Absent: difficulty urinating - Musculoskeletal Musculoskeletal: Absent: limited range of motion - Neurological Neurological: Present: headache(s). Absent: dizziness - Endocrine Endocrine: Present: polydipsia, polyuria Exam - Constitutional Vitals: Period Temp Pulse Resp BP Sys/Herron Pulse Ox Last 24 Hr 98.0 F-98.0 F 106-115 13-22 122-136/81-91 100-100 General appearance: normal weight, no acute distress - Head Head exam: Present: normal inspection, normocephalic - Eye Eye exam: Present: EOMI Pupils: Present: CHERRIE - Neck Neck exam: Present: normal inspection - Respiratory Respiratory exam: Present: clear to auscultation bilaterally. Absent: wheezes - Cardiovascular Cardiovascular exam: Present: regular rate and rhythm - GI/Abdominal GI/Abdominal exam: Present: normal bowel sounds, tenderness, soft - Extremities Exam Extremities exam: Present: normal inspection, normal capillary refill, full ROM - Neurological Exam Neurological exam: Present: alert, oriented X3 - Psychiatric Psychiatric exam: Present: normal affect, normal mood - Skin Skin exam: Present: normal color, warm, dry Results - Labs CBC & BMP: 08/05/16 16:03 Lab Results: I have reviewed the past 24 hour labs
[2016-08-05] MEDS ORDERED: INSULIN REGULAR DRIP 100 ML IV SCH (19:00)
[2016-08-05 19:19] LABS: ABG Base Excess -7.3 MMOL/L (-2.5-2.5); ABG HCO3 18.5 MMOL/L (20-26); ABG PCO2 27.1 MM HG (35-48); ABG PH 7.389 (7.35-7.45); ABG TCO2 14.6 MMOL/L (23-27); Allen Test Positive; Pt O2 Delivery Device Room Air
--- NOTE | 2016-08-05 19:23 | XRay Report ---
History short of breath Comparison 06/11/2016 mediastinal and hilar contours are unchanged. Minimal scarring at the right lung base and right mid chest again seen without congestive failure or confluent infiltrate seen Impression: No acute pathology seen PROCEDURE INTERPRETED AT [facility] DEPARTMENT OF RADIOLOGY Final Report Signed by: Dr. Anjana Sims
[2016-08-05] MEDS ORDERED: INSULIN REGULAR 100 UNIT/ML IV STA (19:41)
[2016-08-05] MEDS ORDERED: INSULIN REGULAR 100 UNIT/ML ONE (19:42)
--- NOTE | 2016-08-05 19:43 | XRay Report ---
History is nausea. There is mild air and moderate fecal material throughout colon. No small bowel dilatation or organomegaly seen Impression: Mildly increased fecal material in the colon PROCEDURE INTERPRETED AT [facility] DEPARTMENT OF RADIOLOGY Final Report Signed by: Dr. Anjana Sims
[2016-08-05] MEDS: DEXTROSE 5% NACL 0.9% 1,000 ML IV SCH (19:50)
[2016-08-05 21:42] LABS: Basophils # 0.1 10*3/uL (0.0-0.2); Basophils % 0.6 % (0.0-0.8); Eosinophils # 0.1 10*3/uL (0.0-0.87); Eosinophils % 0.5 % (0.00-10.9); Hematocrit 34.7 VOL% (35.7-47.0); Hemoglobin 10.9 GM/DL (12.0-16.0); Immature Granulocytes % 0.4 %; Immature Granulocytes Absolute 0.05 #; Lymphocytes # 2.8 10*3/uL (1.4-4.0); Lymphocytes % 23.1 % (21.3-54.2); Mean Corpuscular HGB Conc 31.4 GM/DL (32-36); Mean Corpuscular Hemoglobin 26 PG (27-34); Mean Corpuscular Volume 83.2 FL (87-102); Mean Platelet Volume 10.5 FL (9.6-12.0); Monocytes # 1.3 10*3/uL (0.11-0.8); Monocytes % 10.9 % (1.7-12.7); Neutrophils # 7.7 10*3/uL (1.4-7.4); Neutrophils % 64.5 % (38.7-73.9); Platelet Count 322 T/CUMM (130-400); Red Blood Count 4.17 MC/CUMM (3.8-5.5); Red Cell Distribution Width 14.6 % (9.3-17.3)
[2016-08-05] MEDS ORDERED: DEXTROSE 5% NACL 0.45% 1,000 ML IV SCH (22:00)
[2016-08-05] MEDS: SODIUM CHLORIDE 0.9% 1,000 ML IV SCH (22:07)
[2016-08-05 22:10] LABS: Calcium 8.5 MG/DL (8.5-10.1); Osmolality,Calculated 287.7 MOS/KG (273-304); Potassium 3.6 MMOL/L (3.5-5.1)
[2016-08-05 22:11] LABS: Magnesium 1.7 MG/DL (1.8-2.4); Phosphorous 2.7 MG/DL (2.5-4.9)
[2016-08-05] MEDS ORDERED: SODIUM CHLORIDE 0.9% 1,000 ML IV SCH (23:40)
[2016-08-05] MEDS: DEXT 5% NACL 0.45% KCL 20 MEQ 20 MEQ/1,000 ML BAG IV SCH (23:57)
--- NOTE | 2016-08-06 02:13 | Event Note ---
Patient's IV access was lost and nursing staff called me in need of a triple- lumen catheter. After informed consent was claimed the area was cleaned and draped in sterile fashion on her right femoral vein. An ultrasound was used and a finder needle was introduced with good venous blood return. A wire was inserted over the needle. There was some difficulty with dilating the vein. Patient's skin was very thick and tough. I ultimately had to switch the wire over another needle after the wire Bent and could not be used. A new dilator was introduced and was able to dilate the vein. The triple-lumen catheter was placed over the wire and the wire was strong good venous blood return on all 3 ports. Patient tolerated the procedure. Estimated blood loss was 15 cc.
[2016-08-06 02:42] LABS: Calcium 8.6 MG/DL (8.5-10.1); Magnesium 1.7 MG/DL (1.8-2.4); Osmolality,Calculated 281.1 MOS/KG (273-304); Potassium 3.7 MMOL/L (3.5-5.1)
[2016-08-06 05:46] LABS: Basophils # 0.1 10*3/uL (0.0-0.2); Basophils % 0.5 % (0.0-0.8); Eosinophils # 0.1 10*3/uL (0.0-0.87); Eosinophils % 0.6 % (0.00-10.9); Hematocrit 34.2 VOL% (35.7-47.0); Hemoglobin 10.6 GM/DL (12.0-16.0); Immature Granulocytes % 0.5 %; Immature Granulocytes Absolute 0.05 #; Mean Corpuscular Hemoglobin 26 PG (27-34); Mean Corpuscular Volume 84.4 FL (87-102); Monocytes # 1.3 10*3/uL (0.11-0.8); Monocytes % 11.3 % (1.7-12.7); Neutrophils # 6.7 10*3/uL (1.4-7.4); Neutrophils % 60.1 % (38.7-73.9); Platelet Count 234 T/CUMM (130-400); Red Blood Count 4.05 MC/CUMM (3.8-5.5); Red Cell Distribution Width 14.8 % (9.3-17.3); White Blood Count 11.1 T/CUMM (4-12)
[2016-08-06 06:27] LABS: Magnesium 1.6 MG/DL (1.8-2.4); Phosphorous 2.5 MG/DL (2.5-4.9)
[2016-08-06] MEDS: DEXT 5% NACL 0.45% KCL 20 MEQ 20 MEQ/1,000 ML BAG IV SCH ×6 (06:30→23:05)
[2016-08-06 06:42] LABS: Calcium 8.5 MG/DL (8.5-10.1); Osmolality,Calculated 284.7 MOS/KG (273-304); Potassium 3.6 MMOL/L (3.5-5.1)
--- NOTE | 2016-08-06 09:35 | Hospitalist Progress Note ---
Assessment and Plan (1) DKA (diabetic ketoacidoses) Status: Acute Assessment and plan: Continue IV fluids and insulin infusion. Monitor electrolytes and anion gap with chemistries every 4 hours. Diabetic education done this morning. Current Visit: No Qualifiers: Diabetes mellitus type: type 1 Diabetes mellitus complication detail: without coma Qualified Code(s): E10.10 - Type 1 diabetes mellitus with ketoacidosis without coma (2) Diabetes type 1, uncontrolled Status: Chronic Current Visit: No Qualifiers: Diabetes mellitus complication status: without complication Qualified Code( s): E10.9 - Type 1 diabetes mellitus without complications Hospitalist: Subjective Interval history: Patient seen and examined. Overnight events noted. Central line placed in the right femoral vein for IV access and continued IV and dextrose fluid infusion. The patient did have a drop in blood sugars which necessitated holding the insulin drip. I have advised the nurse to resume insulin drip at 2 U/h and continue D5 half normal saline at 250 cc/h. Patient received diabetic education this morning. She is admittedly noncompliant with her insulin therapy. Exam - Constitutional Vitals: Period Temp Pulse Resp BP Sys/Herron Pulse Ox Last 24 Hr 98.1 F-98.3 F 91-117 8-23 116-149/67-99 95-100 Exam: Constitutional System: No distress. No tremulousness. Head: Normocephalic, atraumatic. Ears, Nose and Throat System: No pain or tenderness. No epistaxis or discharge Eyes System: Pupils equal, round, and reactive. Extraocular muscles intact. Neck: Supple, without adenopathy, No jugular venous distention. No thyromegaly, neck mass, or prior surgery apparent. Respiratory System: Chest clear to auscultation. Cardiovascular System: Heart with regular rate and rhythm. No murmur. GI System: Abdomen soft, nontender. Normo active bowel sounds present. Musculoskeletal System: limbs with no pedal edema. Full distal pulses. Neurological System: No discernable sensory deficit. No aphasia Psychiatric System: Conversation is rational Results - Labs CBC & BMP: 08/06/16 05:35 08/06/16 05:00 Lab Results: I have reviewed the past 24 hour labs
[2016-08-06 09:55] LABS: Amorphous Crystals,Urine Occasional /HPF (Few); Apearance,Urine CLOUDY (Clear); Bacteria,Urine Many /HPF (Few); Bilirubin,Urine Negative (Negative); Blood, Urine Small mg/dL (Negative); Glucose,Urine (UA) 50 mg/dL (Negative); Ketones,Urine 5 mg/dL (Negative); Nitrite,Urine Negative (Negative); Protein,Urine Negative; Urine Color Yellow (Yellow); Urine Specific Gravity 1.009 (1.001-1.035); Urine Urobilinogen < 2.0 EU/DL (0.2-1.0); WBC,Urine 13 /HPF (0-6)
[2016-08-06] MEDS: INSULIN REGULAR DRIP 100 ML IV SCH (10:57)
[2016-08-06 11:30] LABS: Calcium 8.1 MG/DL (8.5-10.1); Osmolality,Calculated 282.3 MOS/KG (273-304); Potassium 4.2 MMOL/L (3.5-5.1)
[2016-08-06] MEDS ORDERED: SODIUM CHLORIDE 0.45% 1,000 ML IV SCH (11:40)
[2016-08-06 15:07] LABS: Calcium 7.9 MG/DL (8.5-10.1); Potassium 4.2 MMOL/L (3.5-5.1)
[2016-08-06] MEDS: MAGNESIUM SULF RIDER 2 GM in PREMIX 1 EACH IV PRN ×2 (17:28→23:45)
[2016-08-06 19:01] LABS: Calcium 8.2 MG/DL (8.5-10.1); Osmolality,Calculated 283.1 MOS/KG (273-304); Potassium 4.3 MMOL/L (3.5-5.1)
[2016-08-06] MEDS: SODIUM CHLORIDE 0.9% 1,000 ML IV SCH (19:13)
[2016-08-06] MEDS: DEXTROSE 5% NACL 0.9% 1,000 ML IV SCH (19:14)
[2016-08-06 23:32] LABS: Calcium 8.1 MG/DL (8.5-10.1); Magnesium 1.8 MG/DL (1.8-2.4); Osmolality,Calculated 285.1 MOS/KG (273-304); Potassium 4.5 MMOL/L (3.5-5.1)
[2016-08-07] MEDS: DEXT 5% NACL 0.45% KCL 20 MEQ 20 MEQ/1,000 ML BAG IV SCH ×2 (03:03→06:43)
[2016-08-07 04:24] LABS: Calcium 7.9 MG/DL (8.5-10.1); Magnesium 2.1 MG/DL (1.8-2.4); Osmolality,Calculated 286.1 MOS/KG (273-304); Potassium 4.4 MMOL/L (3.5-5.1)
[2016-08-07] MEDS: INSULIN REGULAR DRIP 100 ML IV SCH ×2 (06:43→11:02)
[2016-08-07 09:47] LABS: Blood Urea Nitrogen < 1 MG/DL (7-18); Calcium 8.5 MG/DL (8.5-10.1); Glucose 201 MG/DL (74-106); Magnesium 1.8 MG/DL (1.8-2.4); Potassium 4.2 MMOL/L (3.5-5.1); Sodium 138 MMOL/L (136-145)
[2016-08-07] MEDS: SODIUM CHLORIDE 0.45% 1,000 ML IV SCH ×2 (10:44→15:54)
[2016-08-07] MEDS ORDERED: INSULIN GLARGINE 100 UNIT/ML SUBCUT ONE (11:30)
[2016-08-07] MEDS ORDERED: INSULIN NPH/REGULAR 70/30 100 UNIT/ML SUBCUT SCH (11:30)
--- NOTE | 2016-08-07 11:50 | Discharge Summary ---
Hospital Course - Hospital Course Hospital Course: Patient was admitted to the intensive care unit with diabetic ketoacidosis due to noncompliance with subcutaneous insulin administration. The patient is on Lantus 42 units subcu daily as well as a sliding scale insulin calculated as her carbohydrate intake divided by 6. The patient was seen and counseled by diabetic education prior to discharge. I had a lengthy discussion with the patient and her mother on the day of discharge regarding her need to comply with insulin therapy and outpatient follow-up with her physician. She had an uncomplicated hospital course. She was treated with IV fluids and IV insulin therapy. Her CO2 increased to 21 and her gap closed. She feels much better this morning. She is tolerating a regular diabetic diet and has had subcutaneous insulin administration prior to discharge. - Time spent with patient Time with patient DS: Greater than 30 minutes (Total discharge time for this patient, including [id number] time, clinical documentation, medication reconciliation, and discharge planning was 41 minutes.) Diagnosis - Discharge Diagnosis (1) DKA (diabetic ketoacidoses) Status: Acute (2) Diabetes type 1, uncontrolled Status: Chronic Discharge Plan - Discharge Data Disposition: Disch To Home/Self Care Condition at Discharge: Stable Discharge Diet: diabetic diet Activity: resume usual activities as tolerated Hygiene: no restrictions - Discharge Medications Continue Insulin Lispro [HumaLOG] See Protocol SUBCUT DAILY Insulin Glargine [Lantus] 42 unit SUBCUT QAM - Follow Up or Referral - Forms/Instructions Exam - Constitutional Vitals: Period Temp Pulse Resp BP Sys/Herron Pulse Ox Last 24 Hr 97.1 F-99.5 F 83-101 8-25 113-151/74-104 97-100 General appearance: no acute distress Exam: Constitutional System: No distress. No tremulousness. Head: Normocephalic, atraumatic. Ears, Nose and Throat System: No pain or tenderness. No epistaxis or discharge Eyes System: Pupils equal, round, and reactive. Extraocular muscles intact. Neck: Supple, without adenopathy, No jugular venous distention. No thyromegaly, neck mass, or prior surgery apparent. Respiratory System: Chest clear to auscultation. Cardiovascular System: Heart with regular rate and rhythm. No murmur. GI System: Abdomen soft, nontender. Normo active bowel sounds present. Musculoskeletal System: limbs with no pedal edema. Full distal pulses. Neurological System: No discernable sensory deficit. No aphasia Psychiatric System: Conversation is rational Discharge Results Procedures and tests throughout hospitalization: Pending Orders 08/06/16 Urine Culture Routine Labs on day of discharge: Labs from last 24 hours 08/07/16 08/07/16 08/07/16 08:52 05:49 05:01 Sodium 138 Potassium 4.2 Chloride 106 Carbon Dioxide 20 L Anion Gap 16.2 H BUN < 1 L Creatinine 0.60 GFR Calculation 143 BUN/Creatinine Ratio 1.00 L Glucose 201 H POC Glucose 212 H 232 H Calculated Osmolality 277.0 Calcium 8.5 Magnesium 1.8 08/07/16 08/07/16 08/07/16 03:45 03:06 02:10 Sodium 142 Potassium 4.4 Chloride 110 H Carbon Dioxide 20 L Anion Gap 16.4 H BUN 1 L Creatinine 0.60 GFR Calculation 138 BUN/Creatinine Ratio 1.00 L Glucose 246 H POC Glucose 262 H 177 H Calculated Osmolality 286.1 Calcium 7.9 L Magnesium 2.1 08/07/16 08/06/16 08/06/16 01:02 23:51 22:46 Sodium 142 Potassium 4.5 Chloride 111 H Carbon Dioxide 18 L Anion Gap 17.5 H BUN 2 L Creatinine 0.60 GFR Calculation 138 BUN/Creatinine Ratio 3.00 L Glucose 224 H POC Glucose 146 H 213 H Calculated Osmolality 285.1 Calcium 8.1 L Magnesium 1.8 08/06/16 08/06/16 08/06/16 21:47 21:07 20:00 Sodium Potassium Chloride Carbon Dioxide Anion Gap BUN Creatinine GFR Calculation BUN/Creatinine Ratio Glucose POC Glucose 232 H 276 H 235 H Calculated Osmolality Calcium Magnesium 08/06/16 08/06/16 08/06/16 18:27 18:01 17:00 Sodium 142 Potassium 4.3 Chloride 110 H Carbon Dioxide 15 L Anion Gap 21.3 H BUN 2 L Creatinine 0.60 GFR Calculation 138 BUN/Creatinine Ratio 3.00 L Glucose 183 H POC Glucose 189 H 178 H Calculated Osmolality 283.1 Calcium 8.2 L Magnesium 08/06/16 08/06/16 08/06/16 16:04 14:40 14:02 Sodium 143 Potassium 4.2 Chloride 112 H Carbon Dioxide 17 L Anion Gap 18.2 H BUN 3 L Creatinine 0.60 GFR Calculation 138 BUN/Creatinine Ratio 5.00 L Glucose 178 H POC Glucose 178 H 211 H Calculated Osmolality 285.0 Calcium 7.9 L Magnesium 08/06/16 08/06/16 13:01 11:59 Sodium Potassium Chloride Carbon Dioxide Anion Gap BUN Creatinine GFR Calculation BUN/Creatinine Ratio Glucose POC Glucose 199 H 184 H Calculated Osmolality Calcium Magnesium Preliminary micro results at discharge 08/06/16 Unknown Urine Culture - Preliminary Urine,Clean Catch Gram Negative Rods 08/05/16 21:34 Blood Culture - Preliminary Blood No growth at 1 day DS: Provider Date of admission: 08/05/16 18:40 Primary care physician: . 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
[2016-08-07] MEDS ORDERED: INSULIN LISPRO 100 UNIT/ML SUBCUT ONE ×2 (14:38→14:49)
[2016-08-07 15:02] VITALS: BP 141/92
[2016-08-07] MEDS ORDERED: INSULIN LISPRO 100 UNIT/ML SUBCUT SCH (16:30)
== END 2016-08-07 16:45 | disposition home or self-care (01) | DRG 639 ==
LOC: EDUNIT# → EDBD → N.ED 15:35 → N.EDINP 18:40 → N.CC 19:53
PROVIDERS: ADMIT Family Medicine; ATTEND Family Medicine

== ENCOUNTER 2017-06-16 17:00 | Inpatient (IN) ==
[2017-06-16] MEDS ORDERED: SODIUM CHLORIDE 0.9% 1,000 ML IV STA (20:52)
[2017-06-16 21:03] LABS: Albumin 3.9 G/DL (3.4-5.0); Bilirubin,Total 0.5 MG/DL (0.2-1.0); Total Protein 9.1 G/DL (6.4-8.3)
[2017-06-16 21:07] LABS: Apearance,Urine Slightly Hazy (Clear); Bacteria,Urine Occasional /HPF (Few); Bilirubin,Urine Negative (Negative); Blood, Urine Negative (Negative); Glucose,Urine (UA) >=500 mg/dL (Negative); Hyaline Casts,Urine 4 /LPF (0-3); Ketones,Urine 80 mg/dL (Negative); Mucus,Urine Occasional /LPF (Occasional); Nitrite,Urine Negative (Negative); Protein,Urine 100 MG/DL; RBC,Urine 1 /HPF (0-4); Squamous Epithelial Cell,Urine Occasional /HPF (0-10); Urine Color Yellow (Yellow); Urine Specific Gravity 1.014 (1.001-1.035); Urine Urobilinogen < 2.0 EU/DL (0.2-1.0); WBC,Urine 5 /HPF (0-6)
[2017-06-16 21:27] LABS: Basophils # 0.1 10*3/uL (0.0-0.2); Basophils % 0.5 % (0.0-0.8); Eosinophils % 0.3 % (0.00-10.9); Hematocrit 45.4 VOL% (35.7-47.0); Hemoglobin 15.5 GM/DL (12.0-16.0); Immature Granulocytes % 0.7 %; Immature Granulocytes Absolute 0.08 #; Lymphocytes # 1.9 10*3/uL (1.4-4.0); Lymphocytes % 16.9 % (21.3-54.2); Mean Corpuscular HGB Conc 34.1 GM/DL (32-36); Mean Corpuscular Hemoglobin 30 PG (27-34); Mean Corpuscular Volume 87.8 FL (87-102); Mean Platelet Volume 11.5 FL (9.6-12.0); Monocytes # 1.1 10*3/uL (0.11-0.8); Monocytes % 9.5 % (1.7-12.7); Neutrophils # 8.3 10*3/uL (1.4-7.4); Neutrophils % 72.1 % (38.7-73.9); Platelet Count 213 T/CUMM (130-400); Red Blood Count 5.17 MC/CUMM (3.8-5.5); White Blood Count 11.4 T/CUMM (4-12)
[2017-06-16] MEDS ORDERED: SODIUM PHOSPHATE INJ 14.2 MMOL in SODIUM CHLORIDE 0.9% 250 ML IV PRN (21:34)
[2017-06-16] MEDS ORDERED: SODIUM BICARB INJ 100 MEQ in STERILE WATER INJ 400 ML IV PRN (21:34)
[2017-06-16] MEDS ORDERED: DEXTROSE 50% 25 GM/50 ML VIAL IV PRN ×2 (21:34)
[2017-06-16] MEDS ORDERED: POTASSIUM CHLORIDE RIDER 10 MEQ in PREMIX 1 EACH IV PRN (21:34)
[2017-06-16] MEDS ORDERED: MAGNESIUM SULF RIDER 4 GM in PREMIX 1 EACH IV PRN (21:34)
[2017-06-16] MEDS ORDERED: MAGNESIUM SULF RIDER 2 GM in PREMIX 1 EACH IV PRN (21:34)
[2017-06-16] MEDS ORDERED: DEXTROSE 5% NACL 0.45% 1,000 ML IV SCH (22:00)
[2017-06-16] MEDS ORDERED: INSULIN REGULAR DRIP 100 ML IV SCH (22:00)
[2017-06-16] MEDS: LEVOFLOXACIN INJ 500 MG in PREMIX 1 EACH IV SCH (23:48)
[2017-06-16] MEDS: ENOXAPARIN 40 MG/0.4 ML SYRINGE SUBCUT SCH (23:50)
[2017-06-17 00:03] LABS: ABG Base Excess -17.7 MMOL/L (-2.5-2.5); ABG HCO3 6.2 MMOL/L (20-26); ABG Oxygen Saturation 98.5 % (95-100); ABG TCO2 6.6 MMOL/L (23-27)
[2017-06-17 00:10] LABS: ABG PCO2 13.8 MM HG (35-48)
[2017-06-17] MEDS: DEXTROSE 5% NACL 0.45% 1,000 ML IV SCH ×5 (02:00→21:54)
[2017-06-17 02:23] LABS: Calcium 8.7 MG/DL (8.5-10.1); Osmolality,Calculated 275.2 MOS/KG (273-304); Potassium 3.8 MMOL/L (3.5-5.1)
[2017-06-17 02:31] LABS: Basophils # 0.1 10*3/uL (0.0-0.2); Basophils % 0.8 % (0.0-0.8); Eosinophils # 0.1 10*3/uL (0.0-0.87); Eosinophils % 0.9 % (0.00-10.9); Hematocrit 43.3 VOL% (35.7-47.0); Hemoglobin 14.8 GM/DL (12.0-16.0); Immature Granulocytes % 0.8 %; Immature Granulocytes Absolute 0.07 #; Lymphocytes # 1.9 10*3/uL (1.4-4.0); Lymphocytes % 21.1 % (21.3-54.2); Mean Corpuscular HGB Conc 34.2 GM/DL (32-36); Mean Corpuscular Hemoglobin 30 PG (27-34); Mean Corpuscular Volume 88.7 FL (87-102); Mean Platelet Volume 11.5 FL (9.6-12.0); Monocytes # 0.6 10*3/uL (0.11-0.8); Monocytes % 6.8 % (1.7-12.7); Neutrophils # 6.3 10*3/uL (1.4-7.4); Neutrophils % 69.6 % (38.7-73.9); Platelet Count 174 T/CUMM (130-400); Red Blood Count 4.88 MC/CUMM (3.8-5.5); Red Cell Distribution Width 14.3 % (9.3-17.3); White Blood Count 9.1 T/CUMM (4-12)
[2017-06-17 08:00] LABS: Calcium 9.5 MG/DL (8.5-10.1); Potassium 3.2 MMOL/L (3.5-5.1)
[2017-06-17] MEDS ORDERED: GLUCAGON 1 MG VIAL IM PRN ×2 (09:44→12:41)
[2017-06-17] MEDS ORDERED: INSULIN GLARGINE HUM REC ANLOG 20 UNIT SUBCUT SCH (12:15)
[2017-06-17] MEDS ORDERED: DEXTROSE 50% 25 GM/50 ML VIAL IV PRN (12:41)
[2017-06-17] MEDS: INSULIN GLARGINE 100 UNIT/ML SUBCUT SCH (13:47)
[2017-06-17] MEDS: POTASSIUM CHLORIDE 20 MEQ TABLET PO PRN ×4 (13:48→20:34)
[2017-06-17 14:38] LABS: Calcium 9.1 MG/DL (8.5-10.1); Potassium 3.2 MMOL/L (3.5-5.1)
[2017-06-17] MEDS ORDERED: INSULIN REGULAR 100 UNIT/ML ONE (16:55)
[2017-06-17] MEDS: INSULIN REGULAR 100 UNIT/ML SUBCUT SCH ×3 (17:00→23:39)
[2017-06-17] MEDS: ENOXAPARIN 40 MG/0.4 ML SYRINGE SUBCUT SCH (20:35)
[2017-06-17 21:34] LABS: Calcium 8.6 MG/DL (8.5-10.1); Osmolality,Calculated 286.5 MOS/KG (273-304); Potassium 3.7 MMOL/L (3.5-5.1)
[2017-06-17] MEDS: LEVOFLOXACIN INJ 500 MG in PREMIX 1 EACH IV SCH (22:53)
[2017-06-18 03:39] LABS: Calcium 8.7 MG/DL (8.5-10.1); Osmolality,Calculated 280.4 MOS/KG (273-304); Potassium 3.4 MMOL/L (3.5-5.1)
[2017-06-18] MEDS: DEXTROSE 5% NACL 0.45% 1,000 ML IV SCH (05:03)
[2017-06-18] MEDS: INSULIN REGULAR 100 UNIT/ML SUBCUT SCH ×2 (07:07→13:07)
[2017-06-18] MEDS: INSULIN GLARGINE 100 UNIT/ML SUBCUT SCH (09:15)
[2017-06-18 11:38] VITALS: BP 109/63
== END 2017-06-18 13:37 | disposition home or self-care (01) | DRG 639 ==
LOC: N.ED 17:00 → N.EDINP 21:34 → N.ICU 22:47 → N.5E 06-17 15:36